=== PATIENT | male | born 1965 | race Caucasian/White ===

== ENCOUNTER 2023-12-08 07:32 | Emergency (ER) | payer BC ==
--- NOTE | 2023-12-08 07:51 | ERPHSYRPT ---
- History of Present Illness Time Seen by Provider: 12/08/23 07:50 Source: patient Exam Limitations: no limitations Physician History: The patient, a [employer] employee with a history of hypertension, presented with an episode of feeling unwell at work. He reported an onset of chills, followed by a general feeling of malaise, which he initially attributed to possible food upset. He denied any vomiting. Concurrently, he noticed an ache in his left arm, which he described as a discomfort in the upper arm and forearm. This arm ache had been present intermittently for a couple of weeks prior, but was attributed to physical work strain. In response to these symptoms, the patient checked his blood pressure on a pharmacy machine, which read 190/125. He has a known history of hypertension but has been off medication for several years. He also reported a family history of hypertension. In addition to the arm ache, the patient reported a mild cough, which was mostly dry with occasional slight expectoration. He also experienced a nosebleed, which was unusual for him. He denied any fever or chills. He reported chronic headaches, but no exacerbation of these. He also noted slightly blurred vision, which he attributed to his glasses being 'out of whack.' He denied any weakness, facial drooping, or changes in speech. The patient also reported an episode of dizziness when climbing a ladder at work, which was significant enough to cause concern about falling. Despite these symptoms, he denied any chest pain. Timing/Duration: yesterday Activities at Onset: activity Quality: aching Location: other (left arm) Chest Pain Radiation: arm Severity of Pain-Max: mild Severity of Pain-Current: none Modifying Factors: Worsens With: nothing Nitro Today/Relief: no nitro taken today Aspirin Treatment Today: no aspirin today Associated Symptoms: nausea, cough, headaches, No vomiting, No abdominal pain, No shortness of breath, No heartburn, No diaphoresis, No chills, No chest pain, No fever, No loss of appetite Prior Chest Pain/Cardiac Workup: no prior chest pain Allergies/Adverse Reactions: gabapentin [From Neurontin] Adverse Reaction (Verified 12/08/23 07:49) Swelling of Feet pregabalin [From Lyrica] Adverse Reaction (Verified 12/08/23 07:49) Drowiness,loss of concentration Hx Tetanus, Diphtheria Vaccination/Date Given: No Hx Influenza Vaccination/Date Given: No Hx Pneumococcal Vaccination/Date Given: No - Review of Systems Constitutional: No Symptoms Eyes: Vision Changes, Double Vision, No Eye Pain, No Eye Redness, No Foreign Body Sensation Ears, Nose, & Throat: No Symptoms Respiratory: Cough, No Dyspnea, No Dyspnea on Exertion (MCCABE), No Wheezing Cardiac: No Chest Pain, No Edema, No Palpitations, No Orthopnea Abdominal/Gastrointestinal: Nausea, No Abdominal Pain, No Vomiting, No Diarrhea, No Constipation Genitourinary Symptoms: No Symptoms Musculoskeletal: Arthralgias (left arm) Neurological: Dizziness - Past Medical History Pertinent Past Medical History: Yes Neurological History: Peripheral Neuropathy ENT History: No Pertinent History Cardiac History: Hypertension Respiratory History: Sleep Apnea Endocrine Medical History: No Pertinent History Musculoskeletal History: No Pertinent History GI Medical History: Polyps, GERD History: Other Psycho-Social History: No Pertinent History Male Reproductive Disorders: No Pertinent History Other Medical History: kidney stones - Past Surgical History Past Surgical History: Yes Neuro Surgical History: No Pertinent History Cardiac: No Pertinent History Respiratory: No Pertinent History Gastrointestinal: No Pertinent History Genitourinary: No Pertinent History Musculoskeletal: Orthopedic Surgery Male Surgical History: No Pertinent History Other Surgical History: CARPAL TUNNEL RT, CERVICAL DISKECTOMY AND FUSION, RT ROTATOR CUFF - Social History Smoking Status: Former smoker Exposure to second hand smoke: No Drug Use: none Patient Lives Alone: No - Nursing Vital Signs Nursing Vital Signs: Initial Vital Signs Temperature 97.9 F 12/08/23 07:42 Pulse Rate 92 H 12/08/23 07:42 Respiratory Rate 17 12/08/23 07:42 Blood Pressure 197/113 12/08/23 07:42 O2 Sat by Pulse Oximetry 98 12/08/23 07:42 Pain Scale Pain Intensity 3 - Physical Exam General Appearance: no apparent distress Eye Exam: eyes nml inspection Ears, Nose, Throat Exam: normal ENT inspection Neck Exam: normal inspection, supple, full range of motion Respiratory Exam: lungs clear, airway intact, diminished breath sounds, No respiratory distress Cardiovascular Exam: regular rate/rhythm, normal heart sounds, capillary refill <2 sec, No edema Gastrointestinal/Abdomen Exam: soft, normal bowel sounds, No tenderness, No distention, No mass, No guarding, No rebound Extremity Exam: normal inspection, No swelling, No tenderness Neurologic Exam: alert, oriented x 3, cooperative Skin Exam: normal color, warm, dry SpO2 Interpretation: normal O2 Delivery: Room Air - Course Nursing assessment & vital signs reviewed: Yes EKG Interpreted by Me: RATE (81), Sinus Rhythm, NORMAL AXIS, NORMAL INTERVALS, NORMAL QRS, NORMAL ST-T Ordered Tests: Active Orders 24 hr Category Date Time Status General Practice STAT Care 12/08/23 08:02 Active EKG-ER Only STAT Care 12/08/23 08:01 Active IV Insertion STAT Care 12/08/23 08:01 Active Pulse Oximetry (ED) STAT Care 12/08/23 08:01 Active CHEST 1 VIEW (PORTABLE) Stat Exams 12/08/23 08:02 Taken CBC W DIFF Stat Lab 12/08/23 08:10 Completed CMP Stat Lab 12/08/23 08:10 Completed D-DIMER QUANTITATIVE Stat Lab 12/08/23 08:10 Completed ETHYL ALCOHOL Stat Lab 12/08/23 08:10 Completed Erythrocyte Sedimentation Rate Stat Lab 12/08/23 08:10 Completed LIPASE Stat Lab 12/08/23 08:10 Completed Lactic Acid Stat Lab 12/08/23 08:01 Completed MAGNESIUM Stat Lab 12/08/23 08:10 Completed NT PRO BNPII Stat Lab 12/08/23 08:10 Completed PROTIME WITH INR Stat Lab 12/08/23 08:10 Completed PTT Stat Lab 12/08/23 08:10 Completed TROPONIN Q4H Lab 12/08/23 08:10 Completed TROPONIN Q4H Lab 12/08/23 11:25 Completed TROPONIN Q4H Lab 12/08/23 16:15 Ordered UA W/RFX UR CULTURE Stat Lab 12/08/23 09:46 Completed VENOUS BLOOD GAS Urgent Lab 12/08/23 08:01 Completed Medication Summary Generic Name Dose Route Start Last Admin Trade Name Freq PRN Reason Stop Dose Admin Magnesium Sulfate/Dextrose 100 mls @ 100 mls/hr 12/08/23 09:15 12/08/23 10:16 Magnesium 1 Gm / 100 Ml D5w IV 12/08/23 11:14 100 mls/hr Q1H SKYLER Administration Discontinued Medications Generic Name Dose Route Start Last Admin Trade Name Freq PRN Reason Stop Dose Admin Enalaprilat 2.5 mg 12/08/23 08:01 12/08/23 08:28 Enalaprilat 2.5 Mg Injection IV 12/08/23 08:02 2.5 mg STAT ONE Administration Enalaprilat Confirm 12/08/23 08:26 Enalaprilat 2.5 Mg Injection Administered 12/08/23 08:27 Dose 2.5 mg IV .STK-MED ONE Hydrochlorothiazide 50 mg 12/08/23 08:12 12/08/23 08:52 Hydrochlorothiazide 25 Mg Tablet PO 12/08/23 08:13 50 mg ONCE ONE Administration Labetalol HCl 10 mg 12/08/23 08:44 12/08/23 08:51 Labetalol Hcl 20 Mg/4 Ml Disp.Syringe IV 12/08/23 08:45 10 mg STAT ONE Administration Labetalol HCl Confirm 12/08/23 08:51 Labetalol Hcl 20 Mg/4 Ml Disp.Syringe Administered 12/08/23 08:52 Dose 20 mg IV .STK-MED ONE Lab/Rad Data: Laboratory Result Diagrams 12/08/23 08:10 12/08/23 08:10 Laboratory Results 12/08/23 12/08/23 12/08/23 Range/Units Unknown 11:25 09:46 WBC (4.23-9.07) x10^3/uL RBC (4.63-6.08) x10^6/uL Hgb (13.7-17.5) g/dL Hct (40.1-51.0) % MCV (79.0-92.2) fL MCH (25.7-32.2) pg MCHC (32.3-36.5) g/dL RDW (11.6-14.4) % Plt Count (163-337) x10^3/uL MPV (9.4-12.4) fL Gran % (34.0-67.9) % Immature Gran % (Auto) (0.001-0.429) % Nucleat RBC Rel Count (0.00-0.2) % Eos # (Auto) (0.04-0.54) x10^3/uL Immature Gran # (Auto) (0.001-0.031) x10^3u/L Absolute Lymphs (auto) (1.32-3.57) x10^3/uL Absolute Monos (auto) (0.30-0.82) x10^3/uL Absolute Nucleated RBC (0.00-0.012) x10^3u/L Lymphocytes % (21.8-53.1) % Monocytes % (5.3-12.2) % Eosinophils % (0.8-7.0) % Basophils % (0.2-1.2) % Absolute Granulocytes (1.78-5.38) x10^3/uL Basophils # (0.01-0.08) x10^3/uL ESR (0-15) mm/hr PT (9.4-12.5) SECONDS INR (0.8-3.0) APTT (25.1-36.5) SECONDS D-Dimer (0.0-0.50) mg/L pO2/FiO2 Ratio % VBG pH (7.32-7.42) VBG pCO2 at Pat Temp (42-55) mm/Hg VBG pO2 at Pat Temp (25-40) mm/Hg VBG HCO3 (22-28) meq/L VBG O2 Sat (Tony) (95-100) VBG Base Excess (-2.0-2.0) VBG Hemoglobin VBG Carboxyhemoglobin (0.0-6.9) % T HGB POC Potassium (3.5-5.1) Sodium (135-145) mmol/L Potassium (3.5-5.1) mmol/L Chloride (98-107) mmol/L Carbon Dioxide (22-30) mmol/L Anion Gap (5-15) MEQ/L BUN (9-20) mg/dL Creatinine (0.66-1.25) mg/dL Estimated GFR ML/MIN Glucose (74-106) mg/dL Hemoglobin A1c 9.02 H (4.5-6.0) % Lactic Acid (0.4-2.0) Calcium (8.4-10.2) mg/dL Magnesium (1.6-2.3) mg/dL Total Bilirubin (0.2-1.3) mg/dL AST (17-59) U/L ALT (0-50) U/L Alkaline Phosphatase (38-126) U/L Troponin I < 0.012 (0.000-0.033) ng/mL NT-Pro-B Natriuret Pep (<300) pg/mL Serum Total Protein (6.3-8.2) g/dL Albumin (3.5-5.0) g/dL Lipase (23-300) U/L Urine Color Yellow (Yellow) Urine Appearance Clear (Clear) Urine pH 7.0 (4.6-8.0) Ur Specific Wallace 1.010 (1.005-1.030) Urine Protein Negative (Negative) Urine Glucose (UA) 250 A (Negative) mg/dL Urine Ketones Negative (Negative) Urine Blood Negative (Negative) Urine Nitrite Negative (Negative) Urine Bilirubin Negative (Negative) Urine Urobilinogen 1.0 A (0.2) mg/dL Ur Leukocyte Esterase Negative (Negative) U Hyaline Cast (Auto) NONE SEEN (0-2) /LPF Urine Microscopic RBC 0-2 (0-5) /HPF Urine Microscopic WBC 0-2 (0-5) /HPF Ur Epithelial Cells None Seen (None Seen) /HPF Urine Bacteria None Seen (None Seen) /HPF Urine Culture Reflexed NO (NO) Ethyl Alcohol (0-10) mg/dL 12/08/23 12/08/23 12/08/23 Range/Units 08:10 08:10 08:10 WBC (4.23-9.07) x10^3/uL RBC (4.63-6.08) x10^6/uL Hgb (13.7-17.5) g/dL Hct (40.1-51.0) % MCV (79.0-92.2) fL MCH (25.7-32.2) pg MCHC (32.3-36.5) g/dL RDW (11.6-14.4) % Plt Count (163-337) x10^3/uL MPV (9.4-12.4) fL Gran % (34.0-67.9) % Immature Gran % (Auto) (0.001-0.429) % Nucleat RBC Rel Count (0.00-0.2) % Eos # (Auto) (0.04-0.54) x10^3/uL Immature Gran # (Auto) (0.001-0.031) x10^3u/L Absolute Lymphs (auto) (1.32-3.57) x10^3/uL Absolute Monos (auto) (0.30-0.82) x10^3/uL Absolute Nucleated RBC (0.00-0.012) x10^3u/L Lymphocytes % (21.8-53.1) % Monocytes % (5.3-12.2) % Eosinophils % (0.8-7.0) % Basophils % (0.2-1.2) % Absolute Granulocytes (1.78-5.38) x10^3/uL Basophils # (0.01-0.08) x10^3/uL ESR (0-15) mm/hr PT 11.6 (9.4-12.5) SECONDS INR 1.07 (0.8-3.0) APTT 27.9 (25.1-36.5) SECONDS D-Dimer 0.27 (0.0-0.50) mg/L pO2/FiO2 Ratio % VBG pH (7.32-7.42) VBG pCO2 at Pat Temp (42-55) mm/Hg VBG pO2 at Pat Temp (25-40) mm/Hg VBG HCO3 (22-28) meq/L VBG O2 Sat (Tony) (95-100) VBG Base Excess (-2.0-2.0) VBG Hemoglobin VBG Carboxyhemoglobin (0.0-6.9) % T HGB POC Potassium (3.5-5.1) Sodium 138 (135-145) mmol/L Potassium 3.5 (3.5-5.1) mmol/L Chloride 103 (98-107) mmol/L Carbon Dioxide 27 (22-30) mmol/L Anion Gap 11.5 (5-15) MEQ/L BUN 17 (9-20) mg/dL Creatinine 0.84 (0.66-1.25) mg/dL Estimated GFR 100.5 ML/MIN Glucose 205 H (74-106) mg/dL Hemoglobin A1c (4.5-6.0) % Lactic Acid (0.4-2.0) Calcium 8.9 (8.4-10.2) mg/dL Magnesium 1.3 L (1.6-2.3) mg/dL Total Bilirubin 0.80 (0.2-1.3) mg/dL AST 68 H (17-59) U/L ALT 52 H (0-50) U/L Alkaline Phosphatase 187 H (38-126) U/L Troponin I < 0.012 (0.000-0.033) ng/mL NT-Pro-B Natriuret Pep 43.7 (<300) pg/mL Serum Total Protein 7.5 (6.3-8.2) g/dL Albumin 4.1 (3.5-5.0) g/dL Lipase 92 (23-300) U/L Urine Color (Yellow) Urine Appearance (Clear) Urine pH (4.6-8.0) Ur Specific Wallace (1.005-1.030) Urine Protein (Negative) Urine Glucose (UA) (Negative) mg/dL Urine Ketones (Negative) Urine Blood (Negative) Urine Nitrite (Negative) Urine Bilirubin (Negative) Urine Urobilinogen (0.2) mg/dL Ur Leukocyte Esterase (Negative) U Hyaline Cast (Auto) (0-2) /LPF Urine Microscopic RBC (0-5) /HPF Urine Microscopic WBC (0-5) /HPF Ur Epithelial Cells (None Seen) /HPF Urine Bacteria (None Seen) /HPF Urine Culture Reflexed (NO) Ethyl Alcohol < 10 (0-10) mg/dL 12/08/23 12/08/23 12/08/23 Range/Units 08:10 08:01 08:01 WBC 10.6 H (4.23-9.07) x10^3/uL RBC 3.73 L (4.63-6.08) x10^6/uL Hgb 13.1 L (13.7-17.5) g/dL Hct 35.2 L (40.1-51.0) % MCV 94.4 H (79.0-92.2) fL MCH 35.1 H (25.7-32.2) pg MCHC 37.2 H (32.3-36.5) g/dL RDW 11.3 L (11.6-14.4) % Plt Count 148 L (163-337) x10^3/uL MPV 10.1 (9.4-12.4) fL Gran % 54.1 (34.0-67.9) % Immature Gran % (Auto) 0.3 (0.001-0.429) % Nucleat RBC Rel Count 0.0 (0.00-0.2) % Eos # (Auto) 0.09 (0.04-0.54) x10^3/uL Immature Gran # (Auto) 0.03 (0.001-0.031) x10^3u/L Absolute Lymphs (auto) 4.16 H (1.32-3.57) x10^3/uL Absolute Monos (auto) 0.52 (0.30-0.82) x10^3/uL Absolute Nucleated RBC 0.00 (0.00-0.012) x10^3u/L Lymphocytes % 39.2 (21.8-53.1) % Monocytes % 4.9 L (5.3-12.2) % Eosinophils % 0.8 (0.8-7.0) % Basophils % 0.7 (0.2-1.2) % Absolute Granulocytes 5.74 H (1.78-5.38) x10^3/uL Basophils # 0.07 (0.01-0.08) x10^3/uL ESR 10 (0-15) mm/hr PT (9.4-12.5) SECONDS INR (0.8-3.0) APTT (25.1-36.5) SECONDS D-Dimer (0.0-0.50) mg/L pO2/FiO2 Ratio 21.0 % VBG pH 7.45 H (7.32-7.42) VBG pCO2 at Pat Temp 39 L (42-55) mm/Hg VBG pO2 at Pat Temp 40 (25-40) mm/Hg VBG HCO3 27.1 (22-28) meq/L VBG O2 Sat (Tony) 75.1 L (95-100) VBG Base Excess 3.0 H (-2.0-2.0) VBG Hemoglobin 14.0 VBG Carboxyhemoglobin 3.1 (0.0-6.9) % T HGB POC Potassium 3.5 (3.5-5.1) Sodium (135-145) mmol/L Potassium (3.5-5.1) mmol/L Chloride (98-107) mmol/L Carbon Dioxide (22-30) mmol/L Anion Gap (5-15) MEQ/L BUN (9-20) mg/dL Creatinine (0.66-1.25) mg/dL Estimated GFR ML/MIN Glucose (74-106) mg/dL Hemoglobin A1c (4.5-6.0) % Lactic Acid 1.6 (0.4-2.0) Calcium (8.4-10.2) mg/dL Magnesium (1.6-2.3) mg/dL Total Bilirubin (0.2-1.3) mg/dL AST (17-59) U/L ALT (0-50) U/L Alkaline Phosphatase (38-126) U/L Troponin I (0.000-0.033) ng/mL NT-Pro-B Natriuret Pep (<300) pg/mL Serum Total Protein (6.3-8.2) g/dL Albumin (3.5-5.0) g/dL Lipase (23-300) U/L Urine Color (Yellow) Urine Appearance (Clear) Urine pH (4.6-8.0) Ur Specific Wallace (1.005-1.030) Urine Protein (Negative) Urine Glucose (UA) (Negative) mg/dL Urine Ketones (Negative) Urine Blood (Negative) Urine Nitrite (Negative) Urine Bilirubin (Negative) Urine Urobilinogen (0.2) mg/dL Ur Leukocyte Esterase (Negative) U Hyaline Cast (Auto) (0-2) /LPF Urine Microscopic RBC (0-5) /HPF Urine Microscopic WBC (0-5) /HPF Ur Epithelial Cells (None Seen) /HPF Urine Bacteria (None Seen) /HPF Urine Culture Reflexed (NO) Ethyl Alcohol (0-10) mg/dL - Progress Progress: improved Air Movement: good Progress Note: 12/08/23 08:[address] 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 I reviewed the 3 EKGs with him that the computer was reading as ST elevations. He agreed that the EKG was normal. Patient reports return of left forearm pain. Cardiac workup continues to be normal, no chest pain, shortness of breath, diaphoresis with the return of the left arm pain. I evaluated his left shoulder, elbow and wrist. Overall testing unremarkable he may have some level of lateral epicondylitis due to his repetitive nature of his work no other concerning findings at this time. Blood Culture(s) Obtained: No Antibiotics given: No Counseled pt/family regarding: lab results, diagnosis, need for follow-up, rad results Medical Desision Making - Diagnostic Testing Diagnostic test were ordered, analyzed, and reviewed by me: Yes Radiological Interpretation: Interpreted by me, Reviewed by me, Teleradiologist Report - Risk of complications The pt has a mod risk of morbidity or mortality based on: Need for prescription drug management - Departure Departure Disposition: Home Clinical Impression: Hypomagnesemia, Transaminitis, Hyperglycemia, Malignant hypertensive urgency, Diabetes mellitus type II, uncontrolled, Left arm pain, Lateral epicondylitis of left elbow Condition: Stable Critical Care Time: No Referrals: COLIN ALATORRE DO [NON-STAFF PHY W/O PRIVILEGES] - Follow up/PCP as directed Instructions: Type 2 diabetes, Treatment for type 2 diabetes, Malignant Hypertension (DC) Prescriptions: Metformin HCl 500 mg [Glucophage 500 MG] 500 mg PO BIDWM 30 Days #60 tab let hydroCHLOROthiazide [Hydrochlorothiazide] 25 mg PO DAILY 30 Days #30 tablet
[2023-12-08 07:57] VITALS: TEMP 97.9
[2023-12-08 08:15] LABS: Absolute Neutrophil Ct (ANC) 5.74 x10^3/uL (1.78-5.38); BASOPHIL % 0.7 % (0.2-1.2); Basophil (Absolute #) 0.07 x10^3/uL (0.01-0.08); Eosinophil % 0.8 % (0.8-7.0); Eosinophil (Absolute #) 0.09 x10^3/uL (0.04-0.54); Hematocrit 35.2 % (40.1-51.0); Hemoglobin 13.1 g/dL (13.7-17.5); IMMATURE GRAN # 0.03 x10^3u/L (0.001-0.031); IMMATURE GRAN % 0.3 % (0.001-0.429); Lymphocyte (Absolute #) 4.16 x10^3/uL (1.32-3.57); Lymphocytes % 39.2 % (21.8-53.1); Mean Cell Volume 94.4 fL (79.0-92.2); Mean Corpuscular Hemoglobin 35.1 pg (25.7-32.2); Mean Corpuscular Hgb Concent. 37.2 g/dL (32.3-36.5); Mean Platelet Volume 10.1 fL (9.4-12.4); Monocyte (Absolute #) 0.52 x10^3/uL (0.30-0.82); Monocytes % 4.9 % (5.3-12.2); Neutrophil % 54.1 % (34.0-67.9); Platelet Count 148 x10^3/uL (163-337); Red Blood Count 3.73 x10^6/uL (4.63-6.08); Red Cell Distribution Width 11.3 % (11.6-14.4); White Blood Count 10.6 x10^3/uL (4.23-9.07)
[2023-12-08 08:19] LABS: Erythrocyte Sedimentation Rate 10 mm/hr (0-15)
[2023-12-08] MEDS ORDERED: ENALAPRILAT 2.5 MG INJECTION IV ONE (08:26)
[2023-12-08] MEDS: ENALAPRILAT 2.5 MG INJECTION IV ONE (08:28)
[2023-12-08 08:32] LABS: D-DIMER QUANTITATIVE 0.27 mg/L (0.0-0.50); INR 1.07 (0.8-3.0); PROTIME 11.6 SECONDS (9.4-12.5); PTT 27.9 SECONDS (25.1-36.5)
[2023-12-08 08:47] LABS: ALBUMIN 4.1 g/dL (3.5-5.0); ALKALINE PHOSPHATASE 187 U/L (38-126); ANION GAP 11.5 MEQ/L (5-15); BLOOD UREA NITROGEN 17 mg/dL (9-20); CHLORIDE 103 mmol/L (98-107); Calcium 8.9 mg/dL (8.4-10.2); Carbon Dioxide 27 mmol/L (22-30); Creatinine 1 0.84 mg/dL (0.66-1.25); EST GLOMERULAR FILTRATION RATE 100.5 ML/MIN; ETHYL ALCOHOL < 10 mg/dL (0-10); Glucose 205 mg/dL (74-106); LIPASE 92 U/L (23-300); MAGNESIUM 1.3 mg/dL (1.6-2.3); NT PRO BNPII 43.7 pg/mL (<300); Potassium 3.5 mmol/L (3.5-5.1); SGOT/AST 68 U/L (17-59); SGPT/ALT 52 U/L (0-50); SODIUM 138 mmol/L (135-145); Total Protein 7.5 g/dL (6.3-8.2)
[2023-12-08] MEDS ORDERED: TRANDATE 20 MG/4 ML SYRINGE IV ONE (08:51)
[2023-12-08] MEDS: TRANDATE 20 MG/4 ML SYRINGE IV ONE (08:51)
[2023-12-08] MEDS: hydroDIURIL 25 MG PO ONE (08:52)
[2023-12-08 08:57] LABS: VBG CARBOXYHEMOGLOBIN 3.1 % T HGB (0.0-6.9); VBG HCO3- 27.1 meq/L (22-28); VBG O2 SATURATION 75.1 (95-100); VBG POTASSIUM 3.5 (3.5-5.1); VBG pH 7.45 (7.32-7.42)
[2023-12-08] MEDS ORDERED: Magnesium 1 Gm / 100 Ml D5W*** 100 ML IV ONE ×2 (09:42→10:15)
[2023-12-08] MEDS: Magnesium 1 Gm / 100 Ml D5W*** 100 ML IV SCH (09:42)
[2023-12-08 09:56] LABS: Appearance Clear (Clear); Bacteria None Seen /HPF (None Seen); Bilirubin Negative (Negative); Blood Negative (Negative); Epithelial Cells None Seen /HPF (None Seen); Glucose, Urine 250 mg/dL (Negative); Hyaline Casts NONE SEEN /LPF (0-2); Ketones Negative (Negative); Leukocyte Esterase Negative (Negative); Nitrite Negative (Negative); Protein,Urine Dip Negative (Negative); RBC 0-2 /HPF (0-5); WBC 0-2 /HPF (0-5)
[2023-12-08 10:02] LABS: ADD URINE CULTURE? NO (NO)
[2023-12-08 12:18] VITALS: BP 146/89; O2SAT 96
[2023-12-08 12:19] VITALS: PULSE 84; RESP 16
--- NOTE | 2023-12-08 19:56 | XRAY ---
Indication: Chest pain. Comparison: May 04, 2020 Portable chest remains inflated and clear. Heart not enlarged. Bony thorax intact again with mild degenerative changes, old left rib fractures, and lower cervical fusion hardware. No new/acute findings.
== END 2023-12-08 12:25 | disposition home or self-care (01) ==
LOC: ED 07:32
DX: E83.42 Hypomagnesemia (principal); R74.01 Elevation of levels of liver transaminase levels; E11.65 Type 2 diabetes mellitus with hyperglycemia; I16.0 Hypertensive urgency; I10 Essential (primary) hypertension; M79.602 Pain in left arm; M77.12 Lateral epicondylitis, left elbow; R53.81 Other malaise; R05.9 Cough, unspecified; Z79.84 Long term (current) use of oral hypoglycemic drugs; Z79.899 Other long term (current) drug therapy
CPT/HCPCS: 36000; 36415; 71045; 80053; 81001; 82077; 82805; 83036; 83605; 83690; 83735; 83880; 84484; 85025; 85379; 85610; 85652; 85730; 93005; 93041; 94760; 96374; 96375; 99284; J3475; A9270-GY